=== PATIENT | female | born 1960 | race African-American/Black ===

== ENCOUNTER 2016-03-31 07:40 | Inpatient (IN) | payer BC ==
[2016-03-28 13:45] LABS: BASOPHILS 0.4 % (0.0-2.0); HEMATOCRIT 37.7 % (36.0-48.0); HEMOGLOBIN 12.4 g/dL (12-16); IMMATURE GRANULOCYTES 0.1 % (0-5); LYMPHOCYTES 27.3 % (15-50); MCH 30.5 pg (26.0-34.0); MCHC 32.9 g/dL (31.0-37.0); MCV 92.6 fL (80.0-100.0); MEAN PLATELET VOLUME 9.8 fL (7.4-10.4); MONOCYTES 5.4 % (2-11); NEUTROPHILS 62.8 % (40-80); PLATELET COUNT 384 10x3/uL (130-400); RBC 4.07 10x6/uL (4.00-5.40); RDW 13.6 % (11.5-14.5)
[2016-03-28 13:52] LABS: CALC OSMOLALITY 276 mosm/kg (275-300); CALCIUM 9.6 mg/dL (8.5-10.1); CHLORIDE - SERUM 101 mmol/L (98-107); CREATININE - SERUM 0.8 mg/dL (0.6-1.3); POTASSIUM - SERUM 4.2 mmol/L (3.5-5.1); SODIUM 140 mmol/L (136-145); UREA NITROGEN 7 mg/dL (7-18); eGFR NON AFRICAN AMERICAN 78 mL/min (90-120)
[2016-03-28 13:53] LABS: GLUCOSE 101 mg/dL (74-106)
[2016-03-28 13:53] LABS: APTT 30.2 SECONDS (22.8-39.4); INR 0.94 (0.85-1.17); PROTIME 12.4 SECONDS (11.6-15.0)
[2016-03-28 14:02] LABS: APPEARANCE CLEAR (CLEAR); BACTERIA FEW /hpf (NONE SEEN); BILIRUBIN NEGATIVE (NEGATIVE); COLOR YELLOW (YELLOW); EPITHELIAL CELLS 0-5 /hpf (0-5); GLUCOSE NEGATIVE (NEGATIVE); KETONE NEGATIVE (NEGATIVE); LEUKOCYTE ESTERASE 1+ (NEGATIVE); MUCUS <1+ /lpf (NONE SEEN); NITRITE NEGATIVE (NEGATIVE); PROTEIN NEGATIVE (NEGATIVE); UROBILINOGEN NORMAL (NORMAL); WHITE CELLS - URINE 0-5 /hpf (0-5)
[~2016-03-31] VITALS: Ht 154.9 cm; Wt 113.6 kg
[~2016-03-31 07:40] MED LIST: AMBIEN10 MG PO; BUMEX 1 MG TAB1 MG PO; COLCRYS0.6 MG PO; CYCLOBENZAPRINE10 MG PO; DESERYL100 MG PO; HYDROCODONE-APA1 TAB PO; K-TAB10 MEQ PO; LIPITOR10 MG PO; LOTENSIN40 MG PO; MINOCIN100 MG PO; MOVANTIK25 MG PO; NAPROSYN500 MG PO; NORVASC10 MG PO; PAXIL40 MG PO; SYNTHROID50 MCG PO; VOLTAREN100 GM TOPICAL; XANAX0.25 MG PO; ZYLOPRIM100 MG PO
[2016-03-31 08:42] VITALS: BP 159/81; BMI 47.3
--- NOTE | 2016-03-31 11:01 | NUR ---
SHOULDER WASHED AND ALCOHOL PRIOR TO CHLORPREP PER DN
[2016-03-31 12:33] VITALS: BP 110/77
--- NOTE | 2016-03-31 12:33 | NUR ---
RECEIVED TO ROOM 2211 FROM RECOVERY ROOM VIA BED. O2 @ 2L PER NC. CALL LIGHT IN REACH. WILL CONTINUE WITH PLAN OF CARE.
[2016-03-31 13:47] VITALS: BP 110/77; Ht 154.9 cm; Wt 113.6 kg
--- NOTE | 2016-03-31 14:47 | NUR ---
IS GIVEN TO PATIENT AND EXPLAINED USE. RETURN DEMONSTRATION. PASSWORD OBTAINED.
--- NOTE | 2016-03-31 14:52 | OP ---
PATIENT NAME: JOSE ESCAMILLA MEDICAL RECORD: [id number] :58 LOCATION:D.[facility] ADMISSION DATE:03/31/16 SURGEON: ILSA JUAN MD DATE OF OPERATION: 03/31/2016 PREOPERATIVE DIAGNOSIS: Degenerative arthritis of the right shoulder. POSTOPERATIVE DIAGNOSIS: Degenerative arthritis of the right shoulder. PROCEDURE: Right total shoulder arthroplasty. SURGEON: Ilsa Juan MD ANESTHESIA: General. INTRAOPERATIVE COMPLICATIONS: None. SUMMARY OF PATHOLOGIC FINDINGS: The patient had extensive osteoarthritis consistent with the preoperative diagnosis. OPERATIVE SUMMARY IN DETAIL: After obtaining the appropriate preoperative orthopedic surgery consents as well as anesthetic consultation, evaluation and clearance, the patient was brought to the operating room and placed on the operating table in supine position. After adequate general laryngeal mask was administered, the patient was placed in the beach chair position. All pressure points were well padded to include down leg peroneal pad. She was held firmly to the operating table using the vacuum pack suction system. Right upper extremity and shoulder were then prepped and draped in a routine sterile fashion. The arm was held in Trimano arm holding device. Deltopectoral incision was taken down to the level of clavipectoral fascia which was incised. The conjoined tendon was gently retracted medially and the deltoid was retracted laterally using the brown retractor. Biceps tenotomy was done for later tenodesis. Subscapularis was reflected. The shoulder was dislocated. Osteophytes were taken down. Proximal head cut was made using the proximal head cutting guide for the Univers [place] II. Serial sequential reaming and broaching were done. This patient had very small, very tight canal, size 5. A long stem was utilized. The broach and head cut protector guide were put into place when the glenoid was approached. Circumferential labrectomy was followed by serial and sequential reaming for reaming and broaching for a size small glenoid. The glenoid was put into place using bone cement, held into place while the bone cement dried. All excess cement was removed. The stem size 5 was then placed into this humerus with good fit and fill followed by placement of the humeral head. This was reduced and found to be excellent. The subscapularis was reapproximated back to the lesser tuberosity using transosseous #2 Ethibonds. Wound was copiously irrigated and closed with #1 Vicryl followed by 2-0 Vicryl and skin vinod. Sterile dressings were applied. The patient was awakened, taken to the recovery room in stable condition. All final needle and sponge counts were correct. TRANSINT:[id number] Voice Confirmation ID: [id number] DOCUMENT ID: [id number] OPERATIVE REPORT [id number] JOSE ESCAMILLA MD, ILSA CROW at 1452 CC: [id number] DICTATION DATE: 03/31/16 1156 STRIKE PLATE ATTACHER: 03/31/16 1313 ADM IN [place] [id number] [place] [id number]
--- NOTE | 2016-03-31 16:06 | NUR ---
NO NEEDS VOICED AT THIS TIME. CALL LIGHT IN REACH.
[2016-03-31 16:45] VITALS: BP 131/78
--- NOTE | 2016-03-31 18:50 | NUR ---
NO CHANGES IN INITIAL ASSESSMENT. SCDs TO BLE. CALL LIGHT IN REACH. WILL CONTINUE WITH PLAN OF CARE.
--- NOTE | 2016-03-31 19:40 | NUR ---
RECIEVED SHIFT REPORT. PT IS LYING IN BED. ALERT AND ORIENTED AND ABLE TO VERBALIZE NEEDS. O2 @ 4 PER NASAL CANNULA. PT IS AMBULATORY WITH ASSISTANCE. DRESSING TO RIGHT SHOULDER C/D/I. SLING ON. ICE APPLIED. PT DENIES ANY PAIN AT THIS TIME. SCD'S ON. NO NEEDS ARE VERBALIZED AT THIS TIME. WILL CONTINUE TO MONITOR. DAUGHTER AT BEDSIDE. SIDE RAILS ARE UP X 2. BED IS IN LOWEST POSITION. BED ALARM IS ON FOR SAFETY. CALL LIGHT IS WITHIN REACH.
[2016-03-31 20:58] VITALS: BP 151/82
--- NOTE | 2016-03-31 21:57 | NUR ---
SHIFT ASSESSMENT COMPLETED. NIGHT MEDS GIVEN WITH NO PROBLEMS. PT C/O PAIN 10/30. ADMINISTERED PRESCRIBED PRN NORCO PER ORDER. DENIES FURTHER NEEDS. WILL MONITOR. SIDE RAILS X 2. BED LOW. BED ALARM ON. CALL LIGHT IN REACH.
[2016-04-01 01:48] VITALS: BP 132/77
--- NOTE | 2016-04-01 04:22 | NUR ---
PT C/O PAIN 09/29 ADND IS REQUESTING PRN MUSCLE RELAXER. ADMINISTERED PRESCRIBED PRN FLEXERIL AND NORCO PER ORDER. DENIES FURTHER NEEDS. WILL MONITOR. SIDE RAILS X 2. BED LOW. CALL LIGHT IN REACH.
[2016-04-01 04:41] VITALS: BP 124/95
[2016-04-01 04:54] LABS: HEMATOCRIT 33.8 % (36.0-48.0); HEMOGLOBIN 10.8 g/dL (12-16); MCH 29.8 pg (26.0-34.0); MCV 93.4 fL (80.0-100.0); MEAN PLATELET VOLUME 10.1 fL (7.4-10.4); RBC 3.62 10x6/uL (4.00-5.40); RDW 13.8 % (11.5-14.5); WBC 12.6 10x3/uL (4.8-10.8)
[2016-04-01 05:07] LABS: ANION GAP 11.4 mmol/L (8-16); CALCIUM 8.6 mg/dL (8.5-10.1); CARBON DIOXIDE 27.5 mmol/L (21.0-32.0); POTASSIUM - SERUM 3.9 mmol/L (3.5-5.1)
--- NOTE | 2016-04-01 08:22 | NUR ---
ASSESSMENT COMPLETED. IS IN USE SCDs TO BLE. CALL LIGHT IN REACH. WILL CONTINUE WITH PLAN OF CARE.
--- NOTE | 2016-04-01 08:30 | NUR ---
PATIENT IN BED WITH NO COMPLAINTS OF PAIN. DRESSING INTACT. CALL LIGHT WITHIN REACH.
[2016-04-01 08:57] VITALS: BP 111/78
--- NOTE | 2016-04-01 09:12 | NUR ---
GISELLA ROQUE, STATED THAT PATIENT'S INTERSCALENE BLOCK IS LEAKING AND SHE WILL NOTIFY ANESTHESIOLOGY. PAIN IS NOW A 9/10. PERCOCET PO WITH AM MEDS ADMINISTERED. ICE TO RIGHT SHOULDER. CALL LIGHT IN REACH. WILL CONTINUE TO MONNITOR.
--- NOTE | 2016-04-01 09:40 | NUR ---
DR. QUINTANILLA REMOVED INTERSCALENE BLOCK WITH TIP INTACT.
--- NOTE | 2016-04-01 11:06 | NUR ---
STATES PAIN IS NOW A 0. IV SL PER MD ORDER. CALL LIGHT IN REACH.
--- NOTE | 2016-04-01 12:28 | NUR ---
REQUESTING TO BE DC'D HOME. GISELLA ROQUE, NOTIFIED. STATES SHE WILL BE BACK UP HERE IN 45 MINUTES. INFORMED PATIENT. VERBALIZED UNDERSTANDING.
[2016-04-01] MEDS ORDERED: PERCOCET 10/3251 TA1 PO (12:51)
[2016-04-01 13:15] VITALS: BP 129/81
--- NOTE | 2016-04-01 13:51 | NUR ---
PT SITTING UP IN CHAIR. DENIES NEEDS AT THIS TIME. PHONE AND CALL LIGHT WITHIN REACH.
--- NOTE | 2016-04-01 14:18 | NUR ---
Patient Name: JOSE ESCAMILLA Admission Status: Urgent Accout number: [id number] Admission Date: 03-31-2016 : 1960 Admission Diagnosis: Attending: BURKE Current LOS: 1 Anticipated DC Date: 04-01-2016 Planned Disposition: Home Primary Insurance: [employer] O Discharge Planning Comments: CM MET WITH PATIENT REGARDING D/C NEEDS AND PLANS. PATIENT STATED SHE HAS NO STEPS OR STAIRS AT HER HOME. PATIENTS DAUGHTER (JOSE) WILL DRIVE HER HOME AT DISCHARGE. PATIENT STATED SHE IS INDEPENDENT WITH HER CARE AND HAS NO DME AT HOME. PATIENT DENIED HOME HEALTH NEEDS. SHE IS TO FOLLOW UP WITH HER DOCTOR AND PT WILL BE DECIDED IF NEEDED THEN. CM WILL CONTINUE TO FOLLOW PATIENT WITH D/C NEEDS AND PLANS. PCP DR. KINGA SANTANA [facility] [phone] JOSE (DAUGHTER) [phone] Manager Global: Jade Reaves Is the patient Alert and Oriented? Yes 0 * How many steps to enter\exit or inside your home? 0 0 * PCP DR. DONATO 0 * Pharmacy [facility] 0 * Preadmission Environment Home with Family 0 * ADLs Independent 0 * List name and contact numbers for known caregivers / representatives who currently or will assist patient after discharge: JOSE ([phone]) DAUGHTER 0 * Community resources currently utilized None 0 * Additional services required to return to the preadmission environment? Yes 0 * Can the patient safely return to the preadmission environment? Yes 0 * Has this patient been hospitalized within the prior 30 days at any hospital? No 0 Grand Total: 0
--- NOTE | 2016-04-01 14:20 | NUR ---
PT SITTING UP IN CHAIR. REMOVED SALINE LOCK FROM LEFT FOREARM. CATHETER INTACT. PT TOLERATED WELL. DENIES NEEDS AT THIS TIME. PHONE AND CALL LIGHT WITHIN REACH.
--- NOTE | 2016-04-01 14:21 | NUR ---
D/C REASSESSMENT NOTE: PATIENT IS DISCHARGING HOME TODAY-DAUGHTER DRIVING HER. PATIENT DENIED HOME HEALTH AND WILL HAVE A FOLLOW UP APPOINTMENT AND PT WILL BE DETERMINED THEN.
--- NOTE | 2016-04-01 14:38 | NUR ---
PERCOCET PO PER PATIENT REQUEST. DAUGHTER AT BEDSIDE. CALL LIGHT IN REACH.
--- NOTE | 2016-04-01 15:54 | NUR ---
DC INSTRUCTIONS EXPLAINED TO PATIENT AND DAUGHTER. VERBALIZED UNDERSTANDING. DRSG TO RIGHT SHOULDER CHANGED.
--- NOTE | 2016-04-01 16:18 | NUR ---
DC'D TO VEHICLE VIA WC WITH DAUGHTER.
== END 2016-04-01 16:19 | disposition home or self-care (01) | DRG 483 ==
LOC: D.SDCHOLD 07:40 → D.MS 07:40 → D.SDCHOLD 09:00 → D.MS 10:12
PROVIDERS: Family Medicine; ADMIT Orthopaedic Surgery
PROC: 0RRJ0JZ Replacement of Right Shoulder Joint with Synthetic Substitute, Open Approach (ICD-10-PCS; principal; 2016-03-31 09:15)
DX: M19.011 Primary osteoarthritis, right shoulder (principal); M25.711 Osteophyte, right shoulder; I10 Essential (primary) hypertension; E78.5 Hyperlipidemia, unspecified; M79.7 Fibromyalgia; M10.9 Gout, unspecified

== ENCOUNTER 2016-05-23 21:27 | Emergency (ER) | payer BC ==
[2016-03-31 13:47] VITALS: BMI 47.3
[~2016-05-23 21:27] MED LIST changes: +PERCOCET 10/3251 TA1 PO
[2016-05-23 22:09] LABS: BASOPHILS 0.2 % (0.0-2.0); EOSINOPHILS 1.4 % (0-7); HEMATOCRIT 37.2 % (36.0-48.0); HEMOGLOBIN 12.1 g/dL (12-16); IMMATURE GRANULOCYTES 0.3 % (0-5); LYMPHOCYTES 10.4 % (15-50); MCH 29.8 pg (26.0-34.0); MCHC 32.5 g/dL (31.0-37.0); MCV 91.6 fL (80.0-100.0); MEAN PLATELET VOLUME 10.3 fL (7.4-10.4); MONOCYTES 2.3 % (2-11); NEUTROPHILS 85.4 % (40-80); PLATELET COUNT 367 10x3/uL (130-400); RBC 4.06 10x6/uL (4.00-5.40); RDW 13.2 % (11.5-14.5); WBC 10.1 10x3/uL (4.8-10.8)
[2016-05-23 22:24] LABS: ALBUMIN 4.1 g/dL (3.4-5.0); ALKALINE PHOSPHATASE 92 U/L (46-116); ALT (SGPT) 27 U/L (10-68); AMYLASE - SERUM 44 U/L (25-115); BILIRUBIN - TOTAL 0.32 mg/dL (0.2-1.3); CALC OSMOLALITY 286 mosm/kg (275-300); CARBON DIOXIDE 29.5 mmol/L (21.0-32.0); CHLORIDE - SERUM 103 mmol/L (98-107); CREATININE - SERUM 0.7 mg/dL (0.6-1.3); GLUCOSE 185 mg/dL (74-106); LIPASE 85 U/L (73-393); SODIUM 142 mmol/L (136-145); UREA NITROGEN 10 mg/dL (7-18); eGFR NON AFRICAN AMERICAN > 90 mL/min (90-120)
== END 2016-05-24 02:10 | disposition home or self-care (01) ==
LOC: D.ER 21:27
PROVIDERS: Emergency Medicine
DX: R10.9 Unspecified abdominal pain (principal); I10 Essential (primary) hypertension; E87.6 Hypokalemia; R73.9 Hyperglycemia, unspecified; K59.00 Constipation, unspecified

== ENCOUNTER → 2016-12-16 19:30 | Outpatient (CLI) | payer BC ==
[2016-03-31 13:47] VITALS: BMI 47.3
== END | disposition home or self-care (01) ==
LOC: D.LABREF 19:30
DX: M19.012 Primary osteoarthritis, left shoulder (principal); Z11.8 Encounter for screening for other infectious and parasitic diseases

== ENCOUNTER → 2017-01-06 18:02 | Outpatient (CLI) | payer BC ==
[2016-03-31 13:47] VITALS: BMI 47.3
[~2017-01-06 18:02] MED LIST changes: +ASPIRIN EC325 M1 PO; +GABAPENTIN100 MG PO; +ZANAFLEX4 MG PO
== END | disposition home or self-care (01) ==
LOC: D.MAMMO 13:30
DX: Z12.31 Encounter for screening mammogram for malignant neoplasm of breast (principal)

== ENCOUNTER 2017-03-09 07:30 | Inpatient (IN) | payer BC ==
[2017-03-05 09:13] LABS: INR 0.97 (0.85-1.17); PROTIME 12.5 SECONDS (11.6-15.0)
[2017-03-05 09:14] LABS: APTT 28.1 SECONDS (22.8-39.4)
[2017-03-05 09:21] LABS: ANION GAP 9.5 mmol/L (8-16); CARBON DIOXIDE 30.4 mmol/L (21.0-32.0); CREATININE - SERUM 0.9 mg/dL (0.6-1.3); POTASSIUM - SERUM 3.9 mmol/L (3.5-5.1)
[2017-03-05 09:34] LABS: APPEARANCE HAZY (CLEAR); BACTERIA MODERATE /hpf (NONE SEEN); BILIRUBIN NEGATIVE (NEGATIVE); COLOR YELLOW (YELLOW); GLUCOSE NEGATIVE (NEGATIVE); KETONE NEGATIVE (NEGATIVE); NITRITE NEGATIVE (NEGATIVE); PROTEIN NEGATIVE (NEGATIVE); UROBILINOGEN NORMAL (NORMAL)
[2017-03-05 09:35] LABS: MUCUS <1+ /lpf (NONE SEEN)
[2017-03-05 09:47] LABS: BASOPHILS 0.4 % (0-2); EOSINOPHILS 5.8 % (0-7); HEMATOCRIT 36.2 % (36.0-48.0); HEMOGLOBIN 11.9 g/dL (12-16); IMMATURE GRANULOCYTES 0.2 % (0-5); MCH 30.1 pg (26.0-34.0); MCHC 32.9 g/dL (31.0-37.0); MCV 91.4 fL (80.0-100.0); MONOCYTES 6.4 % (2-11); NEUTROPHILS 55.2 % (40-80); PLATELET COUNT 427 10x3/uL (130-400); RBC 3.96 10x6/uL (4.00-5.40); RDW 13.3 % (11.5-14.5); WBC 5.2 10x3/uL (4.8-10.8)
--- NOTE | 2017-03-05 10:35 | NUR ---
03-05-17- DR JUAN NOTIFIED OF UA RESULTS, ORDERS RECEIVED. PATIENT NOTIFIED. PRESCRIPTION FOR BACTRIM DS 1 PO BID X 3 DAYS CALLED TO [facility] [address].
[~2017-03-09] VITALS: Ht 152.4 cm; Wt 117.9 kg
[2017-03-09 10:07] VITALS: BP 157/81; Ht 152.4 cm; Wt 117.9 kg
[2017-03-09 11:18] LABS: APPEARANCE HAZY (CLEAR); COLOR YELLOW (YELLOW); SPECIFIC GRAVITY 1.015 (1.005-1.020)
[2017-03-09 11:20] LABS: BACTERIA MODERATE /hpf (NONE SEEN); BILIRUBIN NEGATIVE (NEGATIVE); GLUCOSE NEGATIVE (NEGATIVE); KETONE NEGATIVE (NEGATIVE); NITRITE NEGATIVE (NEGATIVE); PROTEIN NEGATIVE (NEGATIVE); RED CELLS - URINE OCC /hpf (0-5); UROBILINOGEN NORMAL (NORMAL); WHITE CELLS - URINE 0-5 /hpf (0-5)
[2017-03-09 14:10] VITALS: BP 121/65
--- NOTE | 2017-03-09 14:10 | NUR ---
RECEIVED PATIENT TO ROOM 2212 VIA BED FROM THE RECOVERY ROOM. PATIENT IS AWAKE, ALERT, AND ORIENTED X4. PATIENT DOES FALL ASLEEP AT TIMES DURING CONVERSATION. PATIENT HAD A LEFT TOTAL SHOULDER. LEFT SHOULDER DRESSING IS C/D/I. IMMOBILIZER IN PLACE TO LEFT ARM/SHOULDER. TEMP 97.1 VSS ORIENTED PATIENT TO ROOM AND CALL LIGHT. CONTINUOUS BLOCK IN PLACE AND PATIENT DENIES ANY PAIN AT PRESENT TIME. SCD'S IN PLACE TO BILATERAL LOWER EXTREMITIES. FAMILY AT PATIENT'S BEDSIDE. WILL MONITOR PATIENT.
--- NOTE | 2017-03-09 14:52 | OP ---
PATIENT NAME: JOSE ESCAMILLA MEDICAL RECORD: [id number] :58 LOCATION:D.[facility] ADMISSION DATE:03/09/17 SURGEON: ILSA JUAN MD DATE OF OPERATION: 03/09/2017 PREOPERATIVE DIAGNOSIS: Severe degenerative arthritis of the left shoulder. POSTOPERATIVE DIAGNOSIS: Severe degenerative arthritis of the left shoulder. PROCEDURE: Left total shoulder arthroplasty. SURGEON: Ilsa Juan MD ANESTHESIA: General. INTRAOPERATIVE COMPLICATIONS: None. SUMMARY OF PATHOLOGIC FINDINGS: The patient had very severe degenerative changes of both humeral head as well as the glenoid itself. IMPLANTS USED: Arthrex Univers total shoulder system with a medium vault lock glenoid component, a size 5 apex stem, and a size 48 x 21 humeral head offset. ESTIMATED BLOOD LOSS: 100 cc. OPERATIVE SUMMARY IN DETAIL: After obtaining the appropriate preoperative orthopedic surgery consent as well as anesthetic consultation, evaluation and clearance, the patient was brought to the operating room and placed on the operating table in supine position. After general laryngeal mask airway was administered, the patient was placed in the beach chair position. All pressure points were well padded. She was held firmly to the operating table using the vacuum pack suction system. The patient's left upper extremity and shoulder were then prepped and draped in routine sterile fashion. The arm was held in the Trimano arm holding device. Deltopectoral incision was taken down. The cephalic vein was isolated, clavipectoral fascia was incised. Conjoined tendon was gently retracted medially. The deltoid was retracted laterally using a brown retractor. Subscapularis was taken down, biceps tendon was cut and saved for later tenodesis. The shoulder was then dislocated. Osteophytes were removed. Proximal humeral cut was made. This was followed by sequential reaming and broaching, although a size 6 reamer fit down the largest body, the patient would tolerate was a size 5. Size 5 trial with the cut protection guide was placed on it and the glenoid was approached. Circumferential labrectomy was followed by pin placement, reaming of the glenoid, followed by final preparation of the glenoid for the vault lock system. The wound was copiously irrigated with epinephrine laden saline, dried, and then the glenoid was cemented into place. It was held into place until the cement had hardened. At this point, attention was returned to the proximal humerus. Size 5 Univers II apex stem was put into place. The central screw was locked and then the 48 x 21 was tamped on the Hernandez taper. Shoulder was reduced and found to be excellent with the appropriate amount of posterior translation. Wound was copiously irrigated. The subscapularis was reapproximated back to the lesser tuberosity in a transosseous fashion using #2 Ethibond incorporating the biceps tenodesis in this closure. Wound was again irrigated and closed with #1 Vicryl followed by skin vinod. Sterile dressings were applied. The patient was awakened and taken to recovery room in stable condition. All final needle and sponge counts OPERATIVE REPORT [id number] JOSE ESCAMILLA were correct. TRANSINT:[id number] Voice Confirmation ID: [id number] DOCUMENT ID: [id number] DRAKE AGUILAR, ILSA CROW at 1452 CC: [id number] DICTATION DATE: 03/09/17 1310 TUNNEL MUCKER: 03/09/17 1321 ADM IN [facility] [address] [place] [address]
--- NOTE | 2017-03-09 15:08 | NUR ---
PATIENT RESTING WITH HER EYES CLOSED. SNORING NOTED. NO S/S OF DISTRESS NOTED. CALL LIGHT IN PATIENT'S REACH. WILL CONTINUE TO MONITOR PATIENT.
--- NOTE | 2017-03-09 16:25 | NUR ---
PATIENT STARTING TO WAKE UP MORE. PATIENT DENIES ANY PAIN AT PRESENT TIME AND STATES SHE "FEELS GOOD". DR. OWENS PROVIDED TO PATIENT PER HER REQUEST. PATIENT DENIES ANY FURTHER NEEDS AT PRESENT TIME. IMMOBILIZER IN PLACE TO LEFT SHOULDER/ARM. CALL LIGHT IN PATIENT'S REACH. WILL MONITOR PATIENT.
--- NOTE | 2017-03-09 18:47 | NUR ---
PATIENT RESTING IN BED AND EATING HER DINNER TRAY. PATIENT COMPLAINS OF SOME PAIN AND DISCOMFORT IN HER LEFT SHOULDER AREA. PATIENT RATES HER PAIN LEVEL A "7" ON A 0-10 SCALE. PRN OXYCODONE GIVEN TO PATIENT FOR PAIN LEVEL. PATIENT STATES SHE WANTS TO TRY PAIN MEDICINE BY MOUTH BEFORE SHE GETS ANY IV PAIN MEDS. WILL REASSESS PAIN LEVEL. CALL LIGHT IN PATIENT'S REACH. WILL MONITOR PATIENT.
--- NOTE | 2017-03-09 19:30 | NUR ---
RECIEVED SHIFT REPORT. PT IS LYING IN BED. ALERT AND ORIENTED AND ABLE TO VERBALIZE NEEDS. IV IS PATENT AND FLUIDS ARE RUNNING PER ORDER. SCD'S ON. DRESSING TO LEFT SHOULDER C/D/I AND SLING IN PLACE. PT IS AMBULATORY WITH ASSISTANCE. PT STATES PAIN IS 1/10. NO NEEDS ARE VERBALIZED AT THIS TIME. WILL CONTINUE TO MONITOR. VISITOR IS AT THE BEDSIDE. SIDE RAILS ARE UP X 2. BED IS IN LOWEST POSITION. BED ALARM IS ON FOR SAFETY. CALL LIGHT IS WITHIN REACH.
[2017-03-09 20:00] VITALS: BP 110/73
--- NOTE | 2017-03-09 23:23 | NUR ---
SHIFT ASSESSMENT COMPLETED. NIGHT MEDS GIVEN WITH NO PROBLEMS. NO NEEDS ARE VOICED. WILL MONITOR. SIDE RAILS X 2. BED LOW. BED ALARM ON. CALL LIGHT IN REACH.
[2017-03-10 04:00] VITALS: BP 106/66
[2017-03-10 05:17] LABS: HEMATOCRIT 32.5 % (36.0-48.0); HEMOGLOBIN 10.6 g/dL (12-16); MCH 30.1 pg (26.0-34.0); MCHC 32.6 g/dL (31.0-37.0); MCV 92.3 fL (80.0-100.0); MEAN PLATELET VOLUME 10.1 fL (7.4-10.4); RBC 3.52 10x6/uL (4.00-5.40); RDW 13.9 % (11.5-14.5); WBC 12.6 10x3/uL (4.8-10.8)
[2017-03-10 07:10] VITALS: BP 94/58
--- NOTE | 2017-03-10 08:00 | NUR ---
PT ASSESSMENT COMPLETE NO DISTRESS NOTED AWAKER AND ALERT ORIENTED X 3 LUNGS CLEAR BILATERALLY HAS SLING IN PLACE WITH ABDUCTOR NOTED CALL LIGHT INREACH PT IV NOTED TO RIGHT AC
--- NOTE | 2017-03-10 08:30 | NUR ---
HAS REFUSED PT THIS AM AND STOLD HIM NOT TO COME BACK IN ROOM.
--- NOTE | 2017-03-10 09:00 | NUR ---
PT REFUSED TO WALK OR TRANSFER WITH THERAPY STATED THAT HE WAS RUDE AND DISRESPECTFUL TO HER. APPLOLOGY MADE THAT SHE PRECEIVED THIS FROM THERAPIST. PT STATED THAT SHE IS WILLING TO DO WHAT IS NECESSARY BUT REFUSES TO SEE THAT THERAPIST.
--- NOTE | 2017-03-10 10:47 | NUR ---
Patient Name: JOSE ESCAMILLA Admission Status: Elective Accout number: [id number] Admission Date: 03-09-2017 : 1960 Admission Diagnosis: Attending: ILSA JUAN Current LOS: 1 Anticipated DC Date: Planned Disposition: Home Primary Insurance: [employer] O Discharge Planning Comments: CM met with patient to assess discharge planning needs. Patient lives independently at home with her adult children who will be there to help and drive her home. 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 she denies any DME or HH needs at this time. She does not was HH and stated that she has plenty of help at home. Cm will continue to follow and assist with discharge planning needs. PCP: Kinga Rizzo on [facility] Analyst: Breanna Davies * Is the patient Alert and Oriented? Yes 0 * How many steps to enter\exit or inside your home? 0 0 * PCP KINGA 0 * [facility]acy [facility] [address] 0 * Preadmission Environment Home with Family 0 * ADLs Independent 0 * Equipment None 0 * List name and contact numbers for known caregivers / representatives who currently or will assist patient after discharge: KIDS 2 DAUGHTERS AND 1 SON 0 * Community resources currently utilized None 0 * Additional services required to return to the preadmission environment? No 0 * Can the patient safely return to the preadmission environment? Yes 0 * Has this patient been hospitalized within the prior 30 days at any hospital? No 0 Grand Total: 0
[2017-03-10 10:58] VITALS: BP 153/98
--- NOTE | 2017-03-10 12:00 | NUR ---
PT IV RESITED TO RIGHT HAND PER REQUEST 22 GA X 1 STICK TOLERATED WELL.
[2017-03-10 15:01] VITALS: BP 168/87
--- NOTE | 2017-03-10 16:19 | NUR ---
PT REQUESTED AND RECIEVED PAIN MEDS PER ORDER.
--- NOTE | 2017-03-10 19:35 | NUR ---
RECIEVED SHIFT REPORT. PT IS LYING IN BED. ALERT AND ORIENTED AND ABLE TO VERBALIZE NEEDS. IV IS PATENT AND SALINE LOC AT THIS TIME. DRESSING TO LEFT SHOULDER C/D/I AND SLING ON. PT IS AMBULATORY WITH ASSISTANCE. SCD'S ON. PT DENIES ANY PAIN AT THIS TIME. NO NEEDS ARE VERBALIZED AT THIS TIME. WILL CONTINUE TO MONITOR. SIDE RAILS ARE UP X 2. BED IS IN LOWEST POSITION. CALL LIGHT IS WITHIN REACH.
[2017-03-10 20:00] VITALS: BP 158/92
--- NOTE | 2017-03-10 21:21 | NUR ---
SHIFT ASSESSMENT COMPLETED. NIGHT MEDS GIVEN WITH NO PROBLEMS. PT REQUESTING WE DO NOT DISTURB HER WITH NEXT SET OF VITALS SO SHE CAN REST SINCE SHE DID NOT SLEEP THE NIGHT BEFORE. VSS. NO FURTHER NEEDS. WILL MONITOR. SIDE RAILS X 2. BED LOW. CALL LIGHT IN REACH.
[2017-03-11 04:00] VITALS: BP 101/70
[2017-03-11 05:43] LABS: HEMATOCRIT 28.6 % (36.0-48.0); HEMOGLOBIN 9.3 g/dL (12-16); MCH 29.9 pg (26.0-34.0); MCHC 32.5 g/dL (31.0-37.0); MEAN PLATELET VOLUME 9.9 fL (7.4-10.4); RBC 3.11 10x6/uL (4.00-5.40)
[2017-03-11 05:51] LABS: WBC 7.9 10x3/uL (4.8-10.8)
[2017-03-11 08:08] VITALS: BP 103/66
== END 2017-03-11 11:51 | disposition home or self-care (01) | DRG 483 ==
LOC: D.SDCHOLD 07:30 → D.MS 08:24 → D.SDCHOLD 09:00 → D.MS 13:39
PROVIDERS: ADMIT Orthopaedic Surgery
PROC: 0RRK0JZ Replacement of Left Shoulder Joint with Synthetic Substitute, Open Approach (ICD-10-PCS; principal; 2017-03-09 10:00)
DX: M19.012 Primary osteoarthritis, left shoulder (principal); Z68.42 Body mass index [BMI] 45.0-49.9, adult; M25.712 Osteophyte, left shoulder; E66.01 Morbid (severe) obesity due to excess calories; K21.9 Gastro-esophageal reflux disease without esophagitis; E03.9 Hypothyroidism, unspecified; I10 Essential (primary) hypertension; G47.30 Sleep apnea, unspecified

== ENCOUNTER 2017-11-04 10:13 | Inpatient (IN) | payer SELFPAY ==
[~2017-11-04] VITALS: Ht 152.4 cm; Wt 116.1 kg
[2017-11-04 11:00] VITALS: BP 172/83
[2017-11-04 11:32] LABS: ALKALINE PHOSPHATASE 86 U/L (46-116); ALT (SGPT) 26 U/L (10-68); AMYLASE - SERUM 116 U/L (25-115); BILIRUBIN - TOTAL 0.55 mg/dL (0.2-1.3); CALC OSMOLALITY 277 mosm/kg (275-300); CARBON DIOXIDE 29.6 mmol/L (21.0-32.0); CHLORIDE - SERUM 102 mmol/L (98-107); CREATININE - SERUM 0.8 mg/dL (0.6-1.3); GLUCOSE 140 mg/dL (74-106); LIPASE 584 U/L (73-393); PROTEIN - SERUM 7.9 g/dL (6.4-8.2); SODIUM 138 mmol/L (136-145); UREA NITROGEN 13 mg/dL (7-18); eGFR NON AFRICAN AMERICAN 78 mL/min (90-120)
[2017-11-04 11:36] LABS: POTASSIUM - SERUM 4.1 mmol/L (3.5-5.1); TROPONIN-I < 0.017 ng/mL (0.000-0.060)
[2017-11-04 12:15] LABS: BASOPHILS 0.2 % (0-2); EOSINOPHILS 0.1 % (0-7); HEMATOCRIT 36.9 % (36.0-48.0); HEMOGLOBIN 12.4 g/dL (12-16); IMMATURE GRANULOCYTES 0.3 % (0-5); LYMPHOCYTES 12.3 % (15-50); MCHC 33.6 g/dL (31.0-37.0); MCV 89.3 fL (80.0-100.0); MEAN PLATELET VOLUME 11.5 fL (7.4-10.4); MONOCYTES 3.3 % (2-11); NEUTROPHILS 83.8 % (40-80); RBC 4.13 10x6/uL (4.00-5.40); WBC 10.2 10x3/uL (4.8-10.8)
[2017-11-04 12:16] LABS: PLATELET COUNT 390 10x3/uL (130-400)
[2017-11-04 13:00] VITALS: BP 179/86
[2017-11-04 15:00] VITALS: BP 187/91
[2017-11-04 15:21] LABS: APPEARANCE CLEAR (CLEAR); BILIRUBIN NEGATIVE (NEGATIVE); COLOR YELLOW (YELLOW); GLUCOSE NEGATIVE (NEGATIVE); KETONE SMALL mg/dL (NEGATIVE); NITRITE NEGATIVE (NEGATIVE); PROTEIN NEGATIVE (NEGATIVE); SPECIFIC GRAVITY 1.015 (1.005-1.020); UROBILINOGEN NORMAL (NORMAL)
[2017-11-04 19:45] VITALS: BP 185/110
[2017-11-04 19:53] VITALS: BP 200/110; BMI 50.1
[2017-11-05 00:10] VITALS: BP 182/102
[2017-11-05 04:51] LABS: BASOPHILS 0.3 % (0-2); EOSINOPHILS 0.1 % (0-7); HEMATOCRIT 37.6 % (36.0-48.0); HEMOGLOBIN 12.4 g/dL (12-16); IMMATURE GRANULOCYTES 0.2 % (0-5); LYMPHOCYTES 16.9 % (15-50); MCH 29.7 pg (26.0-34.0); MEAN PLATELET VOLUME 10.3 fL (7.4-10.4); MONOCYTES 5.6 % (2-11); NEUTROPHILS 76.9 % (40-80); PLATELET COUNT 382 10x3/uL (130-400); RBC 4.18 10x6/uL (4.00-5.40); RDW 13.6 % (11.5-14.5); WBC 9.9 10x3/uL (4.8-10.8)
[2017-11-05 05:26] LABS: ALBUMIN 3.8 g/dL (3.4-5.0); ALKALINE PHOSPHATASE 90 U/L (46-116); BILIRUBIN - TOTAL 0.33 mg/dL (0.2-1.3); CALCIUM 8.5 mg/dL (8.5-10.1); CARBON DIOXIDE 28.8 mmol/L (21.0-32.0); CHLORIDE - SERUM 104 mmol/L (98-107); CREATININE - SERUM 0.8 mg/dL (0.6-1.3); GLUCOSE 113 mg/dL (74-106); PROTEIN - SERUM 7.8 g/dL (6.4-8.2); SODIUM 141 mmol/L (136-145); eGFR NON AFRICAN AMERICAN 78 mL/min (90-120)
[2017-11-05 05:35] LABS: ALT (SGPT) 17 U/L (10-68); CALC OSMOLALITY 279 mosm/kg (275-300); POTASSIUM - SERUM 3.4 mmol/L (3.5-5.1); UREA NITROGEN 7 mg/dL (7-18)
[2017-11-05 05:52] VITALS: BP 175/94
[2017-11-05 07:09] LABS: AMYLASE - SERUM 137 U/L (25-115); LIPASE 703 U/L (73-393)
[2017-11-05 08:42] VITALS: BP 123/78
[2017-11-05 12:43] VITALS: BP 129/76
[2017-11-05 13:48] VITALS: Ht 152.4 cm; Wt 116.1 kg
[2017-11-05 20:00] VITALS: BP 139/66
[2017-11-06] VITALS: BP 141/67
[2017-11-06 04:00] VITALS: BP 155/85
[2017-11-06 04:23] LABS: BASOPHILS 0.5 % (0-2); EOSINOPHILS 1.8 % (0-7); HEMATOCRIT 34.7 % (36.0-48.0); LYMPHOCYTES 34.5 % (15-50); MCH 29.3 pg (26.0-34.0); MCHC 31.7 g/dL (31.0-37.0); MEAN PLATELET VOLUME 9.6 fL (7.4-10.4); MONOCYTES 7.4 % (2-11); NEUTROPHILS 55.8 % (40-80); PLATELET COUNT 313 10x3/uL (130-400); RBC 3.76 10x6/uL (4.00-5.40)
[2017-11-06 04:29] LABS: MCV 92.3 fL (80.0-100.0)
[2017-11-06 04:48] LABS: ALBUMIN 3.1 g/dL (3.4-5.0); ALKALINE PHOSPHATASE 73 U/L (46-116); ALT (SGPT) 11 U/L (10-68); AMYLASE - SERUM 127 U/L (25-115); CALC OSMOLALITY 276 mosm/kg (275-300); CALCIUM 8.3 mg/dL (8.5-10.1); CARBON DIOXIDE 27.5 mmol/L (21.0-32.0); CHLORIDE - SERUM 109 mmol/L (98-107); CHOL - HDL RATIO 2.9 ratio (2.3-4.1); CHOLESTEROL, TOTAL 121 mg/dL (0-200); CREATININE - SERUM 0.8 mg/dL (0.6-1.3); GLUCOSE 73 mg/dL (74-106); HDL CHOLESTEROL 42 mg/dL (32-96); LDL CHOLESTEROL 63 mg/dL (0-100); LDL-HDL RATIO 1.5 ratio (1.5-3.5); LIPASE 727 U/L (73-393); MAGNESIUM - SERUM 1.9 mg/dL (1.8-2.4); PHOSPHOROUS 3.5 mg/dL (2.5-4.9); POTASSIUM - SERUM 3.6 mmol/L (3.5-5.1); PROTEIN - SERUM 6.5 g/dL (6.4-8.2); SODIUM 140 mmol/L (136-145); TRIGLYCERIDE 83 mg/dL (30-200); UREA NITROGEN 11 mg/dL (7-18); eGFR NON AFRICAN AMERICAN 78 mL/min (90-120)
[2017-11-06 08:30] VITALS: BP 197/89
[2017-11-06 20:00] VITALS: BP 133/77
[2017-11-07] VITALS: BP 159/87
[2017-11-07 04:00] VITALS: BP 154/69
[2017-11-07 06:56] LABS: BASOPHILS 0.4 % (0-2); EOSINOPHILS 1.6 % (0-7); HEMATOCRIT 33.8 % (36.0-48.0); IMMATURE GRANULOCYTES 0.3 % (0-5); LYMPHOCYTES 23.9 % (15-50); MCH 29.6 pg (26.0-34.0); MCHC 32.5 g/dL (31.0-37.0); MCV 90.9 fL (80.0-100.0); MEAN PLATELET VOLUME 9.9 fL (7.4-10.4); MONOCYTES 7.6 % (2-11); NEUTROPHILS 66.2 % (40-80); PLATELET COUNT 320 10x3/uL (130-400); RBC 3.72 10x6/uL (4.00-5.40); RDW 13.7 % (11.5-14.5); WBC 7.5 10x3/uL (4.8-10.8)
[2017-11-07 07:21] LABS: ALBUMIN 3.2 g/dL (3.4-5.0); ALKALINE PHOSPHATASE 79 U/L (46-116); BILIRUBIN - TOTAL 0.36 mg/dL (0.2-1.3); CALC OSMOLALITY 273 mosm/kg (275-300); CALCIUM 8.7 mg/dL (8.5-10.1); CARBON DIOXIDE 26.2 mmol/L (21.0-32.0); CHLORIDE - SERUM 105 mmol/L (98-107); CREATININE - SERUM 0.7 mg/dL (0.6-1.3); GLUCOSE 79 mg/dL (74-106); LIPASE 231 U/L (73-393); MAGNESIUM - SERUM 1.8 mg/dL (1.8-2.4); PHOSPHOROUS 3.4 mg/dL (2.5-4.9); POTASSIUM - SERUM 3.4 mmol/L (3.5-5.1); PROTEIN - SERUM 6.8 g/dL (6.4-8.2); SODIUM 138 mmol/L (136-145); UREA NITROGEN 9 mg/dL (7-18); eGFR NON AFRICAN AMERICAN > 90 mL/min (90-120)
[2017-11-07 07:22] LABS: ALT (SGPT) 14 U/L (10-68); AMYLASE - SERUM 58 U/L (25-115)
[2017-11-07 09:24] VITALS: BP 131/75
[2017-11-07 18:12] VITALS: BP 150/77
[2017-11-07 20:20] VITALS: BP 151/87
[2017-11-08 04:14] VITALS: BP 120/61
[2017-11-08 05:29] LABS: CALC OSMOLALITY 277 mosm/kg (275-300); CALCIUM 8.4 mg/dL (8.5-10.1); CARBON DIOXIDE 25.7 mmol/L (21.0-32.0); CHLORIDE - SERUM 104 mmol/L (98-107); CREATININE - SERUM 0.7 mg/dL (0.6-1.3); GLUCOSE 113 mg/dL (74-106); POTASSIUM - SERUM 3.7 mmol/L (3.5-5.1); SODIUM 140 mmol/L (136-145); eGFR NON AFRICAN AMERICAN > 90 mL/min (90-120)
[2017-11-08 05:37] LABS: UREA NITROGEN 6 mg/dL (7-18)
[2017-11-08 08:41] VITALS: BP 172/99
[2017-11-08 11:58] VITALS: BP 132/77
[2017-11-08 14:57] VITALS: BP 146/92
[2017-11-08 20:32] VITALS: BP 162/89
[2017-11-09 03:52] LABS: BASOPHILS 0.3 % (0-2); EOSINOPHILS 7.5 % (0-7); HEMATOCRIT 34.4 % (36.0-48.0); HEMOGLOBIN 11.5 g/dL (12-16); IMMATURE GRANULOCYTES 0.2 % (0-5); LYMPHOCYTES 31.3 % (15-50); MCHC 33.4 g/dL (31.0-37.0); MCV 89.8 fL (80.0-100.0); MEAN PLATELET VOLUME 9.9 fL (7.4-10.4); MONOCYTES 5.4 % (2-11); NEUTROPHILS 55.3 % (40-80); PLATELET COUNT 348 10x3/uL (130-400); RBC 3.83 10x6/uL (4.00-5.40); RDW 13.6 % (11.5-14.5); WBC 6.1 10x3/uL (4.8-10.8)
[2017-11-09 04:12] LABS: ALBUMIN 3.3 g/dL (3.4-5.0); ALKALINE PHOSPHATASE 82 U/L (46-116); AMYLASE - SERUM 57 U/L (25-115); BILIRUBIN - TOTAL 0.19 mg/dL (0.2-1.3); CALCIUM 8.7 mg/dL (8.5-10.1); CARBON DIOXIDE 29.1 mmol/L (21.0-32.0); CHLORIDE - SERUM 108 mmol/L (98-107); CREATININE - SERUM 0.7 mg/dL (0.6-1.3); GLUCOSE 101 mg/dL (74-106); LIPASE 246 U/L (73-393); POTASSIUM - SERUM 3.7 mmol/L (3.5-5.1); SODIUM 144 mmol/L (136-145); eGFR NON AFRICAN AMERICAN > 90 mL/min (90-120)
[2017-11-09 04:15] LABS: ALT (SGPT) 23 U/L (10-68); CALC OSMOLALITY 283 mosm/kg (275-300); UREA NITROGEN 4 mg/dL (7-18)
[2017-11-09 04:26] VITALS: BP 139/86
[2017-11-09] MEDS ORDERED: Pancrease 5000,17,00 PO ×2 (07:09)
[2017-11-09] MEDS ORDERED: CREON DR 6,0001 EACH PO ×2 (07:10→07:11)
[2017-11-09] MEDS ORDERED: PROTONIX40 MG PO (07:12)
[2017-11-09 08:10] VITALS: BP 138/79
== END 2017-11-09 10:05 | disposition home or self-care (01) | DRG 439 ==
LOC: D.ER 10:13 → D.MS 16:30 → D.EDHOLD 16:30 → D.MS 16:36 → OBSVTIME 11-05 16:30 → D.MS 11-05 16:31
PROVIDERS: Family Medicine
DX: K85.90 Acute pancreatitis without necrosis or infection, unspecified (principal); Z68.43 Body mass index [BMI] 50.0-59.9, adult; G89.29 Other chronic pain; M54.9 Dorsalgia, unspecified; I10 Essential (primary) hypertension; F41.9 Anxiety disorder, unspecified; F32.9 Major depressive disorder, single episode, unspecified; E03.9 Hypothyroidism, unspecified; E78.5 Hyperlipidemia, unspecified; E66.01 Morbid (severe) obesity due to excess calories

== ENCOUNTER 2018-02-02 11:39 | Day surgery (SDC) | payer BC ==
[~2018-02-02] VITALS: Ht 152.4 cm; Wt 115.5 kg
--- NOTE | ~2018-02-02 | OP ---
PATIENT NAME: JOSE ESCAMILLA MEDICAL RECORD: [id number] :58 LOCATION:D.[facility] ADMISSION DATE: SURGEON: HALI JIMENEZ MD DATE OF OPERATION: 02/02/2018 PROCEDURE: EGD with biopsy. FREE LANCE ARTIST: Hali Jimenez MD SCOPE: Olympus video gastroscope. MEDICATIONS: Per TIVA anesthesia. The patient received 260 mg of propofol for this procedure, O2 4 liters. INDICATION FOR THE PROCEDURE: Epigastric discomfort, nausea and vomiting. Of note, the patient was recently hospitalized at [facility] for nausea, vomiting and abdominal pain. No fever or chills. No bleeding. She was found to have pancreatitis, but with a negative CT of the abdomen and pelvis, and a negative MRCP. She is presenting today for an EGD for further evaluation of her symptoms. FINDINGS AND DESCRIPTION OF PROCEDURE: Informed consent was given. The patient was made comfortable with the above medications. After reaching an adequate level of sedation by slow IV push, the patient was placed on her left side. The endoscope was then advanced under direct visualization through the posterior pharyngeal area and advanced to the distal esophagus. Only very mild inflammation was seen in this area and multiple biopsies were obtained. On entering the stomach, the patient had a fairly normal cardia and fundus. The stomach body had japv-ek-ipbeihct inflammation as did the antral area and biopsies were taken looking for the presence of Helicobacter pylori. A few erosions were also observed, but no ulcers were seen. The duodenal bulb to the second portion had some congestion, mild inflammation, some mild erythema. Biopsies were taken in the second portion of the duodenum. No ulcers or erosions were appreciated. The scope was then withdrawn. IMPRESSION: 1. Mild distal reflux esophagitis. 2. Normal cardia and fundus, stomach body and antrum with a few erosions and some moderate gastritis. 3. Htgs-yp-kjpnltrc duodenitis. PLAN: 1. The patient should follow reflux precautions stringently, both dietary and positional. No chocolate, tomato, citrus, caffeine, fatty foods, peppermint. The patient should not eat late at night and sit up for a couple hours after meals. The patient is presently taking a 325 mg aspirin, which certainly could cause some inflammation in the small bowel and stomach, but as this is necessary we will ask to continue this drug. She is also on Creon 6000 units, 3 capsules with meals and 2 capsules with snacks. We may be able to taper this medicine after an upcoming clinic visit, which we will request to see if after checking an amylase and lipase and with further review of her symptoms. At this time, she is taking pantoprazole at a dose of 40 mg p.o. every morning and we will add famotidine 20 mg p.o. at bedtime. As mentioned above, she should use caution with anti-inflammatory drugs, but probably needs to continue her aspirin. 2. Continue Creon at the above-mentioned doses. OPERATIVE REPORT [id number] JOSE ESCAMILLA 3. Low fat diet. TRANSINT:[id number] Voice Confirmation ID: [id number] DOCUMENT ID: [id number] HALI JIMENEZ MD CC: BEN DONATO DO [id number] DICTATION DATE: 02/02/18 1415 MUSSEL FARMER: 02/02/18 1515 [facility] [address] [place] [address]
[~2018-02-02 11:39] MED LIST changes: +CREON DR 6,0001 EACH PO; +PROTONIX40 MG PO; +Pancrease 5000,17,00 PO
[2018-02-02 12:08] LABS: HEMATOCRIT 36.9 % (36.0-48.0); HEMOGLOBIN 12.3 g/dL (12-16); MCH 30.3 pg (26.0-34.0); MCHC 33.3 g/dL (31.0-37.0); MCV 90.9 fL (80.0-100.0); MEAN PLATELET VOLUME 9.9 fL (7.4-10.4); RBC 4.06 10x6/uL (4.00-5.40); RDW 13.5 % (11.5-14.5); WBC 5.6 10x3/uL (4.8-10.8)
[2018-02-02 12:57] VITALS: BP 130/93; Ht 152.4 cm; Wt 115.5 kg
== END 2018-02-02 15:45 | disposition home or self-care (01) ==
LOC: D.OPS 11:39
PROVIDERS: Anesthesiology
DX: K29.50 Unspecified chronic gastritis without bleeding (principal); K21.0 Gastro-esophageal reflux disease with esophagitis; K29.80 Duodenitis without bleeding; Z01.812 Encounter for preprocedural laboratory examination

== ENCOUNTER → 2018-02-16 11:20 | Outpatient (CLI) | payer BC ==
[2018-02-02 12:57] VITALS: BMI 49.7
[2018-02-16 12:05] LABS: ALBUMIN 4.3 g/dL (3.4-5.0); BILIRUBIN - DIRECT 0.08 mg/dL (0.00-0.30); BILIRUBIN - INDIRECT 0.29 mg/dL (0.00-1.00); BILIRUBIN - TOTAL 0.37 mg/dL (0.2-1.3); PROTEIN - SERUM 7.9 g/dL (6.4-8.2)
== END | disposition home or self-care (01) ==
LOC: D.LAB 08:00
PROVIDERS: Internal Medicine Gastroenterology
DX: Z87.19 Personal history of other diseases of the digestive system (principal)

== ENCOUNTER 2018-12-20 13:05 | Emergency (ER) | payer BC ==
[~2018-12-20] VITALS: Ht 152.4 cm; Wt 104.5 kg
[2018-12-20 13:07] VITALS: Ht 152.4 cm; Wt 104.5 kg
[2018-12-20 13:25] LABS: BASOPHILS 0.3 % (0-2); EOSINOPHILS 0 % (0-7); HEMATOCRIT 33.9 % (36.0-48.0); HEMOGLOBIN 10.9 g/dL (12-16); IMMATURE GRANULOCYTES 0.2 % (0-5); LYMPHOCYTES 9.8 % (15-50); MCH 27.9 pg (26.0-34.0); MCHC 32.2 g/dL (31.0-37.0); MCV 86.9 fL (80.0-100.0); MEAN PLATELET VOLUME 9.5 fL (7.4-10.4); MONOCYTES 4.7 % (2-11); RDW 14.8 % (11.5-14.5); WBC 8.8 10x3/uL (4.8-10.8)
[2018-12-20 13:31] LABS: PLATELET COUNT 482 10x3/uL (130-400)
[2018-12-20 13:40] LABS: ALBUMIN 4.3 g/dL (3.4-5.0); ALKALINE PHOSPHATASE 81 U/L (46-116); ALT (SGPT) 21 U/L (10-68); BILIRUBIN - TOTAL 0.33 mg/dL (0.2-1.3); CALC OSMOLALITY 279 mosm/kg (275-300); CALCIUM 9.2 mg/dL (8.5-10.1); CARBON DIOXIDE 24.5 mmol/L (21.0-32.0); CHLORIDE - SERUM 105 mmol/L (98-107); CREATININE - SERUM 0.8 mg/dL (0.6-1.3); GLUCOSE 131 mg/dL (74-106); POTASSIUM - SERUM 3.3 mmol/L (3.5-5.1); PROTEIN - SERUM 7.8 g/dL (6.4-8.2); SODIUM 140 mmol/L (136-145); UREA NITROGEN 9 mg/dL (7-18); eGFR NON AFRICAN AMERICAN 78 mL/min (90-120)
[2018-12-20 13:43] LABS: AMYLASE - SERUM 54 U/L (25-115); LIPASE 116 U/L (73-393); TROPONIN-I < 0.017 ng/mL (0.000-0.060)
[2018-12-20 15:06] LABS: APPEARANCE CLEAR (CLEAR); COLOR YELLOW (YELLOW); NITRITE NEGATIVE (NEGATIVE); PROTEIN 1+ mg/dL (NEGATIVE); SPECIFIC GRAVITY 1.015 (1.005-1.020)
[2018-12-20 15:07] LABS: BILIRUBIN NEGATIVE (NEGATIVE); GLUCOSE NEGATIVE (NEGATIVE); KETONE SMALL mg/dL (NEGATIVE); UROBILINOGEN NORMAL (NORMAL)
[2018-12-20 16:34] VITALS: BP 177/84
== END 2018-12-20 17:20 | disposition home or self-care (01) ==
LOC: D.ER 13:05
PROVIDERS: Family Medicine
DX: R10.9 Unspecified abdominal pain (principal); I10 Essential (primary) hypertension

== ENCOUNTER 2019-02-14 15:33 | Emergency (ER) | payer BC ==
[~2019-02-14] VITALS: Ht 152.4 cm; Wt 100.0 kg
[2019-02-14 15:38] VITALS: Ht 152.4 cm; Wt 100.0 kg
[2019-02-14 16:08] LABS: BASOPHILS 0.1 % (0-2); EOSINOPHILS 0 % (0-7); HEMATOCRIT 37.1 % (36.0-48.0); HEMOGLOBIN 11.8 g/dL (12-16); IMMATURE GRANULOCYTES 0.3 % (0-5); LYMPHOCYTES 9.2 % (15-50); MCH 27.4 pg (26.0-34.0); MCHC 31.8 g/dL (31.0-37.0); MCV 86.3 fL (80.0-100.0); MEAN PLATELET VOLUME 9.8 fL (7.4-10.4); MONOCYTES 7.3 % (2-11); NEUTROPHILS 83.1 % (40-80); PLATELET COUNT 462 10x3/uL (130-400); RDW 14.4 % (11.5-14.5); WBC 7.4 10x3/uL (4.8-10.8)
[2019-02-14 16:18] LABS: CALC OSMOLALITY 284 mosm/kg (275-300); CALCIUM 9.9 mg/dL (8.5-10.1); CARBON DIOXIDE 26.8 mmol/L (21.0-32.0); CHLORIDE - SERUM 104 mmol/L (98-107); CREATININE - SERUM 0.8 mg/dL (0.6-1.3); GLUCOSE 135 mg/dL (74-106); POTASSIUM - SERUM 3.4 mmol/L (3.5-5.1); SODIUM 143 mmol/L (136-145); UREA NITROGEN 8 mg/dL (7-18); eGFR NON AFRICAN AMERICAN 78 mL/min (90-120)
[2019-02-14 16:29] LABS: ALBUMIN 4.6 g/dL (3.4-5.0); ALKALINE PHOSPHATASE 90 U/L (46-116); ALT (SGPT) 17 U/L (10-68); AMYLASE - SERUM 91 U/L (25-115); BILIRUBIN - TOTAL 0.36 mg/dL (0.2-1.3); LIPASE 390 U/L (73-393); PROTEIN - SERUM 8.8 g/dL (6.4-8.2); TROPONIN-I < 0.017 ng/mL (0.000-0.060)
[2019-02-14 18:17] LABS: APPEARANCE CLEAR (CLEAR); BILIRUBIN NEGATIVE (NEGATIVE); COLOR YELLOW (YELLOW); GLUCOSE NEGATIVE (NEGATIVE); KETONE SMALL mg/dL (NEGATIVE); NITRITE NEGATIVE (NEGATIVE); PROTEIN TRACE mg/dL (NEGATIVE); UROBILINOGEN NORMAL (NORMAL)
[2019-02-14] MEDS ORDERED: PROTONIX40 MG PO (18:57)
[2019-02-14] MEDS ORDERED: ZOFRAN4 MG PO (18:57)
[2019-02-14 19:04] VITALS: BP 170/93
== END 2019-02-14 19:07 | disposition home or self-care (01) ==
LOC: D.ER 15:33
PROVIDERS: Family Medicine
DX: R10.9 Unspecified abdominal pain (principal); K21.9 Gastro-esophageal reflux disease without esophagitis; Z87.19 Personal history of other diseases of the digestive system